=== PATIENT | male | born 1940 | race Caucasian/White ===

== ENCOUNTER 2019-05-08 13:01 | Inpatient (IN) | payer OTHER ==
[2019-05-08] MEDS: INSULIN ASPART [NOVOLOG] 3 ML PEN SC ×2 (03:16)
[2019-05-08] MEDS: METOPROLOL 25 MG TAB PO (03:16)
[2019-05-08 13:25] LABS: ADD MAN DIFF? NO
[2019-05-08] MEDS: ALBUTEROL 0.5% (NEB) 2.5 MG/0.5 ML AMP INH (13:27)
[2019-05-08 13:28] LABS: WHITE BLOOD COUNT 5.6 10^3/ul (4.8-10.8)
[2019-05-08 13:28] LABS: ABNORMAL IP MESSAGE 1; BASOPHILS % 0.5 % (0.0-2.0); EOSINOPHILS # 0.1 10^3/ul (0.0-0.5); EOSINOPHILS % 1.1 % (0.0-7.0); HEMOGLOBIN 10.1 g/dl (14.0-18.0); LYMPHOCYTES # 1.8 10^3/ul (0.8-2.9); LYMPHOCYTES % 31.7 % (15.0-51.0); MEAN CORPUSCULAR HEMOGLOBIN 31.7 pg (29.0-33.0); MEAN CORPUSCULAR HGB CONC 30.6 g/dl (32.0-37.0); MEAN CORPUSCULAR VOLUME 103.4 fl (82.0-101.0); MEAN PLATELET VOLUME 13.3 fl (7.4-10.4); MONOCYTE # 0.6 10^3/ul (0.3-0.9); MONOCYTES % 9.9 % (0.0-11.0); NEUTROPHIL # 3.1 10^3/ul (1.6-7.5); NEUTROPHILS % 56.4 % (39.0-77.0); PLATELET COUNT 95 10^3/UL (140-415); POSITIVE DIFF @See below; RED BLOOD COUNT 3.19 10^6/ul (4.70-6.10); RED CELL DISTRIBUTION WIDTH 13.7 % (11.5-14.5)
[2019-05-08] MEDS ORDERED: DEXTROSE 50% 50 ML SYRINGE IV ×3 (13:30→16:00)
[2019-05-08 13:48] LABS: INR 0.95; PROTIME 12.8 Sec (11.9-14.9)
[2019-05-08 13:49] LABS: ALANINE AMINOTRANSFERASE 11 IU/L (13-69); ALBUMIN 4.3 g/dl (3.3-4.9); ALBUMIN/GLOBULIN RATIO 1.38; ALKALINE PHOSPHATASE 47 IU/L (42-121); ANION GAP 15 (5-13); ASPARTATE AMINO TRANSFERASE 20 IU/L (15-46); BLOOD UREA NITROGEN 56 mg/dl (7-20); CALCIUM 9.7 mg/dl (8.4-10.2); CARBON DIOXIDE 18 mmol/L (21-31); CHLORIDE 102 mmol/L (97-110); CREATININE 8.02 mg/dl (0.61-1.24); GLUCOSE 95 mg/dl (70-220); MAGNESIUM 2.2 mg/dl (1.7-2.5); PARTIAL THROMBOPLASTIN TIME 36.6 Sec (23.0-35.0); SODIUM 135 mmol/L (135-144); TOTAL PROTEIN 7.4 g/dl (6.1-8.1)
[2019-05-08] MEDS: DEXTROSE 50% 50 ML SYRINGE IV (13:49)
[2019-05-08] MEDS: CA CHLORIDE 10% 10 ML SYRINGE IV (13:49)
[2019-05-08] MEDS: INSULIN REGULAR, HUMAN 100 UNIT/1 ML 3ML VIAL IVP (13:51)
[2019-05-08 13:59] LABS: TROPONIN-I < 0.012 ng/ml (0.000-0.120)
[2019-05-08 14:01] LABS: POTASSIUM 7.1 mmol/L (3.5-5.1)
[2019-05-08] MEDS ORDERED: NA POLYST SULFON 15 GM/60 ML BTL PO (14:30)
[2019-05-08] MEDS ORDERED: ACETAMINOPHEN 325 MG TAB PO (15:30)
[2019-05-08] MEDS ORDERED: NACL 0.9% 3 ML SYG IV (15:30)
[2019-05-08] MEDS ORDERED: ONDANSETRON 4 MG INJ IV (15:30)
[2019-05-08] MEDS ORDERED: GLUCAGON 1 MG INJ IM (16:00)
[2019-05-08] MEDS ORDERED: SODIUM CHLORIDE 0.9% 1L BAG IV (16:00)
[2019-05-08] MEDS ORDERED: GLUCOSE GEL 15 GRAM TUBE BUCCAL (16:00)
[2019-05-08] MEDS ORDERED: GLUCOSE GEL 15 GRAM TUBE PO ×2 (16:00)
[2019-05-08] MEDS ORDERED: ALBUMIN HUMAN 25% 100 ML IV (16:00)
[2019-05-08] MEDS ORDERED: HEPARIN 1000 UNITS/ML 10 ML INJ HE (16:00)
[2019-05-08 16:44] LABS: HEMOGLOBIN A1C 4.8 % (0-5.9)
[2019-05-08] MEDS: SODIUM POLYSTYRENE 15 GM KIT (POWDER + SORBITOL) PO (17:29)
[2019-05-08] MEDS: INSULIN GLARGINE [LANTus] (100 UNITS/ML) SYG SC (20:00)
[2019-05-08] MEDS: SEVELAMER CARBONATE 0.8 GM PKT PO (23:28)
[2019-05-08] MEDS: HEPARIN 5,000 UNIT/1 ML VIAL SC (23:33)
[2019-05-09 06:51] LABS: ADD MAN DIFF? NO
[2019-05-09 07:00] LABS: WHITE BLOOD COUNT 5.1 10^3/ul (4.8-10.8)
[2019-05-09 07:00] LABS: ABNORMAL IP MESSAGE 1; BASOPHILS % 0.4 % (0.0-2.0); EOSINOPHILS # 0.1 10^3/ul (0.0-0.5); HEMATOCRIT 29.6 % (42.0-52.0); HEMOGLOBIN 9.1 g/dl (14.0-18.0); LYMPHOCYTES # 1.4 10^3/ul (0.8-2.9); LYMPHOCYTES % 26.8 % (15.0-51.0); MEAN CORPUSCULAR HEMOGLOBIN 30.6 pg (29.0-33.0); MEAN CORPUSCULAR HGB CONC 30.7 g/dl (32.0-37.0); MEAN CORPUSCULAR VOLUME 99.7 fl (82.0-101.0); MEAN PLATELET VOLUME 13.2 fl (7.4-10.4); MONOCYTE # 0.5 10^3/ul (0.3-0.9); MONOCYTES % 10.3 % (0.0-11.0); NEUTROPHIL # 3.1 10^3/ul (1.6-7.5); NEUTROPHILS % 61.1 % (39.0-77.0); PLATELET COUNT 79 10^3/UL (140-415); POSITIVE DIFF @See below; RED BLOOD COUNT 2.97 10^6/ul (4.70-6.10); RED CELL DISTRIBUTION WIDTH 13.9 % (11.5-14.5)
[2019-05-09 07:26] LABS: ALANINE AMINOTRANSFERASE 17 IU/L (13-69); ALBUMIN 3.9 g/dl (3.3-4.9); ALKALINE PHOSPHATASE 42 IU/L (42-121); ANION GAP 16 (5-13); ASPARTATE AMINO TRANSFERASE 18 IU/L (15-46); BILIRUBIN,INDIRECT 0.1 mg/dl (0-1.1); BILIRUBIN,TOTAL 0.1 mg/dl (0.2-1.3); BLOOD UREA NITROGEN 65 mg/dl (7-20); CARBON DIOXIDE 19 mmol/L (21-31); CHLORIDE 102 mmol/L (97-110); CREATININE 9.41 mg/dl (0.61-1.24); GLUCOSE 63 mg/dl (70-220); SODIUM 137 mmol/L (135-144); TOTAL PROTEIN 6.5 g/dl (6.1-8.1)
[2019-05-09 07:30] LABS: POTASSIUM 7.1 mmol/L (3.5-5.1)
[2019-05-09 07:33] LABS: CREATINE KINASE 65 IU/L (23-200)
[2019-05-09 07:35] LABS: CHOL/HDL RATIO 1.8 RATIO; CHOLESTEROL 99 mg/dl (100-200); HDL CHOLESTEROL 53 mg/dl (31-75); LDL CHOLESTEROL,CALCULATED 38 mg/dl; MAGNESIUM 2.1 mg/dl (1.7-2.5); TRIGLYCERIDES 39 mg/dl (0-149)
[2019-05-09 07:35] LABS: PHOSPHORUS 4.5 mg/dl (2.5-4.9)
[2019-05-09 07:38] LABS: CK INDEX 0.4; CK-MB 0.23 ng/ml (0.0-2.4); TROPONIN-I < 0.012 ng/ml (0.000-0.120)
[2019-05-09] MEDS: INSULIN ASPART [NOVOLOG] 3 ML PEN SC ×4 (07:55→22:17)
[2019-05-09] MEDS: METOPROLOL 25 MG TAB PO ×2 (08:13→22:17)
[2019-05-09] MEDS: AMLODIPINE 10 MG TAB PO (08:14)
[2019-05-09] MEDS: LOSARTAN 25 MG TAB PO (08:14)
[2019-05-09] MEDS: HEPARIN 5,000 UNIT/1 ML VIAL SC ×2 (08:16→22:28)
[2019-05-09] MEDS: SEVELAMER CARBONATE 0.8 GM PKT PO ×3 (08:16→17:39)
[2019-05-09 08:36] LABS: HEPATITIS B SURFACE ANTIGEN NEGATIVE (NEGATIVE)
[2019-05-09 20:27] LABS: HEPATITIS B SURFACE ANTIBODY POSITIVE (NEGATIVE)
[2019-05-10] MEDS: hydrALAzine 20 MG INJ IV (01:45)
[2019-05-10 06:50] LABS: ADD MAN DIFF? NO
[2019-05-10 06:56] LABS: ABNORMAL IP MESSAGE 1; BASOPHILS % 0.5 % (0.0-2.0); EOSINOPHILS # 0.1 10^3/ul (0.0-0.5); EOSINOPHILS % 1.3 % (0.0-7.0); HEMATOCRIT 30.3 % (42.0-52.0); LYMPHOCYTES # 1.3 10^3/ul (0.8-2.9); LYMPHOCYTES % 32.8 % (15.0-51.0); MEAN CORPUSCULAR VOLUME 93.8 fl (82.0-101.0); MEAN PLATELET VOLUME 13.3 fl (7.4-10.4); MONOCYTE # 0.4 10^3/ul (0.3-0.9); MONOCYTES % 10.2 % (0.0-11.0); NEUTROPHIL # 2.2 10^3/ul (1.6-7.5); NEUTROPHILS % 54.9 % (39.0-77.0); PLATELET COUNT 84 10^3/UL (140-415); POSITIVE DIFF @See below; RED BLOOD COUNT 3.23 10^6/ul (4.70-6.10); RED CELL DISTRIBUTION WIDTH 13.1 % (11.5-14.5)
[2019-05-10 06:56] LABS: WHITE BLOOD COUNT 3.9 10^3/ul (4.8-10.8)
[2019-05-10 07:40] LABS: ANION GAP 12 (5-13); BLOOD UREA NITROGEN 45 mg/dl (7-20); CALCIUM 9.1 mg/dl (8.4-10.2); CARBON DIOXIDE 24 mmol/L (21-31); CHLORIDE 97 mmol/L (97-110); GLUCOSE 70 mg/dl (70-220); SODIUM 133 mmol/L (135-144)
[2019-05-10] MEDS: SEVELAMER CARBONATE 0.8 GM PKT PO ×2 (07:55→12:04)
[2019-05-10] MEDS: INSULIN ASPART [NOVOLOG] 3 ML PEN SC ×2 (07:55→11:50)
[2019-05-10] MEDS: LOSARTAN 25 MG TAB PO (08:00)
[2019-05-10] MEDS: METOPROLOL 25 MG TAB PO (08:01)
[2019-05-10] MEDS: AMLODIPINE 10 MG TAB PO (08:01)
[2019-05-10 08:08] LABS: PHOSPHORUS 4.7 mg/dl (2.5-4.9)
[2019-05-10] MEDS: HEPARIN 5,000 UNIT/1 ML VIAL SC (08:15)
[2019-05-10] MEDS: HEPARIN 1000 UNITS/ML 10 ML INJ HE (09:09)
[2019-05-10 12:55] LABS: POTASSIUM 4.6 mmol/L (3.5-5.1)
== END 2019-05-10 16:47 | disposition home or self-care (01) | DRG 640 ==
LOC: TEL 14:24 → E/R 13:01
PROC: 5A1D70Z Performance of Urinary Filtration, Intermittent, Less than 6 Hours Per Day (ICD-10-PCS; 2019-05-08)
PROC: 5A1D70Z Performance of Urinary Filtration, Intermittent, Less than 6 Hours Per Day (ICD-10-PCS; principal; 2019-05-09)
DX: E87.5 Hyperkalemia (principal); G92 Toxic encephalopathy; N18.6 End stage renal disease; I12.0 Hypertensive chronic kidney disease with stage 5 chronic kidney disease or end stage renal disease; D61.818 Other pancytopenia; E87.70 Fluid overload, unspecified; E11.22 Type 2 diabetes mellitus with diabetic chronic kidney disease; I27.20 Pulmonary hypertension, unspecified; R56.9 Unspecified convulsions; R00.1 Bradycardia, unspecified; D64.9 Anemia, unspecified; D63.1 Anemia in chronic kidney disease; N18.9 Chronic kidney disease, unspecified; E78.5 Hyperlipidemia, unspecified; Z79.4 Long term (current) use of insulin; Z99.2 Dependence on renal dialysis; Z87.891 Personal history of nicotine dependence
CPT/HCPCS: 36415; 71045; 80048; 80053; 80061; 82550; 82553; 82962; 83036; 83735; 84100; 84132; 84484; 85025; 85610; 85730; 86706; 87340; 90935; 93005; 93306; 94664; 96374; 96375; 99285-25